=== PATIENT | male | born 1995 | race Caucasian/White ===

== ENCOUNTER 2017-12-09 14:44 | Emergency (ER) | payer MEDICAID ==
[~2017-12-09] VITALS: Ht 182.9 cm; Wt 85.5 kg
[~2017-12-09 14:44] MED LIST: IBUP-812 PO
[2017-12-09 14:45] VITALS: BP 155/92
== END 2017-12-09 15:58 | disposition home or self-care (01) ==
LOC: ER 14:44
DX: S63.502A Unspecified sprain of left wrist, initial encounter (principal); W18.30XA Fall on same level, unspecified, initial encounter; Y93.51 Activity, roller skating (inline) and skateboarding; Y92.89 Other specified places as the place of occurrence of the external cause; Y99.8 Other external cause status
CPT/HCPCS: 29125; 73110; 99284; A6255

== ENCOUNTER 2024-06-09 19:59 | Emergency (ER) | payer MEDICAID ==
[~2024-06-09] VITALS: Ht 182.9 cm; Wt 102.3 kg
[2024-06-09] MEDS ORDERED: iohexol 300mg/ml 100ml inj. ONE (20:27)
[2024-06-09 20:45] LABS: ALBUMIN 3.9 G/DL (3.4-5.0); ANION GAP 10 (8-16); BLOOD UREA NITROGEN 12 MG/DL (7-18); CALCIUM 8.8 MG/DL (8.5-10.1); CHLORIDE 101 MMOL/L (99-107); CREATININE 0.92 MG/DL (0.60-1.10); GLUCOSE 101 MG/DL (70-104); POTASSIUM 3.6 MMOL/L (3.5-5.1); SODIUM 138 MMOL/L (135-145); TOTAL CARBON DIOXIDE 27.4 MMOL/L (24-32); eCRCL 134 ML/MIN; eGFR > 90 ML/MIN
[2024-06-09] MEDS: normal saline 1000ml 1,000 ML IV ONE (20:53)
[2024-06-09 20:57] LABS: BASOPHILS # (AUTO) 0.1 X10'3 (0-0.2); BASOPHILS % (AUTO) 0.5 % (0-1); EOSINOPHILS # (AUTO) 0.2 X10'3 (0-0.9); EOSINOPHILS % (AUTO) 1.8 % (0-6); HEMATOCRIT 41.8 % (42.0-52.0); HEMOGLOBIN 14.5 g/dl (14.0-17.9); LYMPHOCYTES # (AUTO) 1.3 X10'3 (1.1-4.8); LYMPHOCYTES % (AUTO) 12.2 % (21-51); MEAN CORPUSCULAR HEMOGLOBIN 30.5 PG (27.0-31.0); MEAN CORPUSCULAR HGB CONC 34.8 g/dL (33.0-36.5); MEAN CORPUSCULAR VOLUME 87.7 FL (78-98); MEAN PLATELET VOLUME 8.5 FL (7.4-10.4); MONOCYTES # (AUTO) 1.8 X10'3 (0-0.9); MONOCYTES % (AUTO) 16.7 % (2-12); NEUTROPHILS # (AUTO) 7.6 X10'3 (1.8-7.7); NEUTROPHILS % (AUTO) 68.8 % (42-75); PLATELET COUNT 205 X10'3 (140-440); RED BLOOD COUNT 4.76 X10'6 (4.70-6.10); RED CELL DISTRIBUTION WIDTH 12.8 % (11.5-14.5)
[2024-06-09] MEDS ORDERED: CLINDAMYCIN 600mg IN NS 50ML 50 ML IV ONE (21:35)
[2024-06-09] MEDS ORDERED: CLIN-214 PO (21:35)
[2024-06-09 21:58] LABS: TOTAL CELLS COUNTED 100
[2024-06-09] MEDS: clindamycin 600mg/D5W 50ml 50 ML IV ONE (22:00)
[2024-06-09 22:38] VITALS: BP 145/81; PULSE 80; RESP 16; TEMP 98.6; O2SAT 98
== END 2024-06-09 22:41 | disposition home or self-care (01) ==
LOC: ER 20:00
DX: L02.11 Cutaneous abscess of neck (principal); F10.90 Alcohol use, unspecified, uncomplicated; Y90.9 Presence of alcohol in blood, level not specified
CPT/HCPCS: 70491; 80048; 84145; 85007; 85025; 96361; 96365; 99285; J3490; J7030; Q9967

== ENCOUNTER 2025-02-15 11:27 | Emergency (ER) | payer MEDICAID ==
[~2025-02-15] VITALS: Ht 182.9 cm; Wt 108.9 kg
[~2025-02-15 11:27] MED LIST changes: +CLIN-214 PO; -IBUP-812 PO
[2025-02-15 11:56] LABS: LEUKOCYTE ESTERASE ,URINE NEGATIVE (Neg); NITRITES, URINE NEGATIVE (Neg); OCCULT BLOOD,URINE NEGATIVE (Neg)
[2025-02-15 11:57] LABS: MEAN PLATELET VOLUME 8.3 FL (7.4-10.4); RED CELL DISTRIBUTION WIDTH 13.5 % (11.5-14.5)
[2025-02-15 12:06] LABS: UA COLLECTION TYPE CLN CATCH MIDSTREAM
[2025-02-15 12:12] LABS: CREATININE 1.02 MG/DL (0.60-1.10); TOTAL CARBON DIOXIDE 28.1 MMOL/L (24-32); eCRCL 119 ML/MIN; eGFR 88 ML/MIN
[2025-02-15 12:18] LABS: COARSE GRANULAR CAST 0-3 /LPF (NEGATIVE); MUCUS STRANDS MODERATE /LPF (Neg); SQUAMOUS EPITHELIAL CELL,UR FEW /LPF (FEW)
[2025-02-15 12:34] VITALS: BP 144/106; PULSE 84; RESP 20; TEMP 97.8; O2SAT 98
[2025-02-15] MEDS: normal saline 1000ml 1,000 ML IV ONE (12:58)
[2025-02-15] MEDS: ondansetron/PF 4mg/2ml inj IV ONE (12:58)
[2025-02-15] MEDS ORDERED: PANT20TA18 PO (13:26)
[2025-02-15] MEDS ORDERED: ONDA-243 PO (13:26)
--- NOTE | 2025-02-15 13:27 | Physician Documentation ---
History of Present Illness Chief Complaint: Abdominal Pain w/vomiting Stated Complaint: VOMITING Time Seen by MD: 12:33 Primary Medical Doctor: NONE Mode of Arrival: POV HPI 29-year-old male who presents to the emergency department with a complaint of epigastric discomfort with nausea without vomiting x 2 days. Reports that he did heavy drinking over the weekend wishes not uncommon for him. Denies hematemesis, melena stool yet describes his pain and has a discomfort of gurgling. Denies diarrhea and/or fevers. Medication Reconciliation Allergies: Coded Allergies: No Known Allergies (Unverified , 02/15/25) Scheduled Clindamycin HCl (Clindamycin HCl CAPSULE), 1 CAP PO TID Pantoprazole Sodium (Protonix), 1 TAB PO DAILY Scheduled PRN ONDANSETRON ODT 4mg tablet (Ondansetron Odt), 1 TAB PO Q6H PRN PRN for nausea/vomiting Past Medical History Past Medical History: No Pertinent History Past Surgical History: noncontributory Alcohol Use: Alcoholic Drug Use: none Lives In: Home Review of Systems All Other Systems at this time: Reviewed and Negative Constitutional: Denies: fever Gastrointestinal: Reports: abdominal pain, nausea Physical Exam Vital Signs: RN Vital Signs have been reviewed: Yes, Temperature: 97.8, Source: Temporal, Heart Rate: 84, Respiratory Rate: 20, BP: 144/106, Pulse Oximetry: 98, Weight: 108.900 Oxygen Flow Rate: 0 General Appearance: alert, WD/WN, mild distress EENT: PERRL/EOMI Neck: normal inspection Respiratory: lungs clear Chest: no accessory muscle use Cardiovascular: normal peripheral pulses Gastrointestinal: bowels sounds present, tenderness (Epigastrium); No: spleen e nlargement, mass, rebound, guarding, rigidity Back: normal inspection Extremities: normal range of motion Neurologic: oriented x4 Psychiatric: normal mood/affect Skin: normal color Progress Results/Orders Results/Orders Orders - JENNIFER SIMS PAC Normal Saline 1000ml (0.9% Sodium Chlori (02/15/25 12:35) Completed Orders - JENNIFER SIMS PAC Pantoprazole 40mg Iv (Protonix 40mg Iv) (02/15/25 12:35) Ondansetron Inj. (Zofran 4mg/2ml Vial) (02/15/25 12:35) Medications Received in ER Medications (Trade) Dose Ordered Sig/Emy Route PRN Reason Start Time Stop Time Status Last Admin Dose Admin Sodium Chloride 1,000 ml @ 1,000 mls/hr ONCE ONCE IV 02/15/25 12:35 02/15/25 13:34 02/15/25 12:58 1,000 MLS/HR (Protonix 40mg IV) 40 mg ONCE STAT IV 02/15/25 12:35 02/15/25 12:36 DC 02/15/25 12:58 40 MG (Zofran 4mg/2ml vial) 4 mg ONCE ONCE IV 02/15/25 12:35 02/15/25 12:36 DC 02/15/25 12:58 4 MG Vital Signs 02/15/25 02/15/25 02/15/25 11:29 12:30 12:34 Temp 98.0 97.8 Pulse 105 84 Resp 18 20 20 B/P (MAP) 176/99 144/106 (119) Pulse Ox 97 98 O2 Flow Rate 0 0 Laboratory Tests Test 02/15/25 11:40 02/15/25 11:45 Urine Specimen Description Cln catch midstream Urine Color Dark yellow Urine Clarity Clear Urine pH 6.0 Urine Specific Kila 1.015 Urine Protein 30 H Urine Glucose (UA) Negative Urine Ketones >=80 Urine Occult Blood Negative Urine Nitrite Negative Urine Bilirubin Moderate Urine Urobilinogen 1.0 Urine Leukocyte Esterase Negative Urine RBC 0-2 Urine WBC 0-4 Urine Squamous Epithelial Cells Few Urine Bacteria Few Urine Coarse Granular Casts 0-3 Urine Mucus Moderate Urine Culture Indicated Not ind Volume Urine Centrifuged 10 ml Urine Comment White Blood Count 5.1 Red Blood Count 5.63 Hemoglobin 16.6 Hematocrit 47.6 Mean Corpuscular Volume 84.5 Mean Corpuscular Hemoglobin 29.4 Mean Corpuscular Hemoglobin Concent 34.8 Red Cell Distribution Width 13.5 Platelet Count 238 Mean Platelet Volume 8.3 Neutrophils (%) (Auto) 66.7 Lymphocytes (%) (Auto) 21.3 Monocytes (%) (Auto) 7.4 Eosinophils (%) (Auto) 3.8 Basophils (%) (Auto) 0.8 Neutrophils # (Auto) 3.4 Lymphocytes # (Auto) 1.1 Monocytes # (Auto) 0.4 Eosinophils # (Auto) 0.2 Basophils # (Auto) 0.0 CBC Comment Sodium Level 135 Potassium Level 3.3 L Chloride Level 96 L Carbon Dioxide Level 28.1 Anion Gap 11 Blood Urea Nitrogen 5 L Creatinine 1.02 Estimated GFR/1.73 m2 88 BUN/Creatinine Ratio 4.9 L Glucose Level 121 H Calcium Level 9.0 Total Bilirubin 1.6 H Aspartate Amino Transf (AST/SGOT) 198 H Alanine Aminotransferase (ALT/SGPT) 249 H Alkaline Phosphatase 81 Total Protein 8.2 Albumin 4.4 Globulin 3.8 Albumin/Globulin Ratio 1.2 Lipase 32 Chemistry Comments Medical Decision Making Additional information obtaine: N/A Findings Examination in patient's history is consistent with alcoholic gastritis without suspected hemorrhage. He has been provided IV hydration in the emergency dep artment along with the Protonix and Zofran. He has responded well to the therapy. Labs were all reassuring other than some mild transaminitis likely secondary to chronic alcohol use. No clinical suspicion folate cholecystitis, cholelithiasis choledocholithiasis with a cholangitis or pancreatitis. Discharged in the emergency department with aftercare instructions and prescriptions for PPi and Zofran. Discharged nontoxic and well-appearing. Patient encouraged to abstain from alcohol & NSAID and return to the emergency department as needed. Differential Dx:Considerations: Bowel obstruction, Cholangitis, Cholelithasis, Constipation, Esophageal rupture, Esophagitis, Gastritis/PUD, Gastroenteritis, GI hemorrhage, Inflammatory BD, Ischemic bowel Departure Disposition: 01 HOME / SELF CARE / HOMELESS Impression: Primary Impression: Alcoholic gastritis without bleeding Qualified Codes: K29.20 - Alcoholic gastritis without bleeding Condition: Improved Discharge Instructions: Gastritis, Adult Additional Instructions: Please begin prescribed medications as directed abstain from alcohol use and ibuprofen use. Your labs are otherwise reassuring yet your liver enzymes are indicative of alcohol overuse. Return in the emergency department as needed. Thank you for visiting [facility]. Referrals: NO PRIMARY CARE PROVIDER (PCP) Prescriptions ONDANSETRON ODT 4mg tablet (ONDANSETRON ODT) 4 Mg Tab.rapdis 1 TAB PO Q6H PRN PRN for nausea/vomiting for 4 Days, #16 TAB 0 Refills Prov: JENNIFER SIMS PAC 02/15/25 Pantoprazole Sodium (Protonix) 20 Mg Tablet.dr 1 TAB PO DAILY for 30 Days, #30 TAB 0 Refills Prov: JENNIFER SIMS PAC 02/15/25 Education Educated: Patient Educated regarding: diagnosis, treatment, prognosis, need for follow up Signature Scribe Signature: . Attestation: . JENNIFER SIMS PAC Feb 15, 2025 13:27
== END 2025-02-15 13:35 | disposition home or self-care (01) ==
LOC: ER 11:28
DX: K29.20 Alcoholic gastritis without bleeding (principal); Z79.899 Other long term (current) drug therapy
CPT/HCPCS: 36415; 80053; 81001; 83690; 85025; 96361; 96374; 96375; 99284; J2405; J2470; J7030